=== PATIENT | female | born 1940 | race African-American/Black ===

== ENCOUNTER 2018-03-26 13:23 | Outpatient (CLI) | payer MEDICARE, BC | END 2018-03-26 13:24 | disposition home or self-care (01) | LOC: BICMAMMO 13:23 | PROVIDERS: ATTEND Internal Medicine | DX: Z12.31 Encounter for screening mammogram for malignant neoplasm of breast (principal); Z13.820 Encounter for screening for osteoporosis; R92.1 Mammographic calcification found on diagnostic imaging of breast; M85.89 Other specified disorders of bone density and structure, multiple sites; Z78.0 Asymptomatic menopausal state; Z80.3 Family history of malignant neoplasm of breast | CPT/HCPCS: 77063; 77067; 77080 ==

== ENCOUNTER 2019-02-22 10:46 | Emergency (ER) | payer BC, MEDICARE | END 2019-02-22 11:40 | disposition home or self-care (01) | LOC: SCSER 10:46 | DX: R42 Dizziness and giddiness (principal); G47.00 Insomnia, unspecified; E03.9 Hypothyroidism, unspecified | CPT/HCPCS: 93005 ==

== ENCOUNTER 2019-04-22 08:33 | Outpatient (CLI) | payer MEDICARE, BC ==
--- NOTE | 2019-04-22 10:49 | MMO ---
Bilateral MAMMO Bilat Screen [facility]. CLINICAL HISTORY: Patient is 78 years old and is seen for screening. The patient has no personal history of cancer. The patient has a history of left Excisional Biopsy in September, - benign. VIEWS: The views performed were: bilateral craniocaudal with tomosynthesis and bilateral mediolateral oblique with tomosynthesis. FILMS COMPARED: The present examination has been compared to prior imaging studies performed at [facility] on 02/17/2015, 03/11/2016, 03/14/2017 and 03/26/2018. This study has been interpreted with the assistance of computer-aided detection. MAMMOGRAM FINDINGS: There are scattered fibroglandular densities. Benign calcifications are noted bilaterally. There are no suspicious masses, suspicious calcifications, or new areas of architectural distortion. IMPRESSION: THERE IS NO MAMMOGRAPHIC EVIDENCE OF MALIGNANCY. A ROUTINE FOLLOW-UP MAMMOGRAM IN 1 YEAR IS RECOMMENDED. THE RESULTS OF THIS EXAM WERE SENT TO THE PATIENT. ACR BI-RADS Category 2 - Benign finding MAMMOGRAPHY NOTE: 1. A negative mammogram report should not delay a biopsy if a dominant of clinically suspicious mass is present. 2. Approximately 10% to 15% of breast cancers are not detected by mammography. 3. Adenosis and dense breasts may obscure an underlying neoplasm. Reported by: KASIA JENKINS MD Electonically Signed: [id number]
--- NOTE | 2019-04-22 16:07 | BD ---
BONE DENSITOMETRY USING DEXA: Date: 04/22/19 HISTORY: Postmenopausal screening for osteoporosis. FINDINGS: Lumbar Spine: BMD (g/cm2) L1 0.899 T-Score: -0.8 Z-Score: 0.9 L2 0.917 T-Score: -1.0 Z-Score: 1.0 L3 0.947 T-Score: -1.2 Z-Score: 0.8 L4 0.878 T-Score: -1.7 Z-Score: 0.5 L1-L4 0.909 T-Score: -1.3 Z-Score: 0.7 Femoral Neck: 0.617 T-Score: -2.1 Z-Score: -0.6 Total Femur: 0.804 T-Score: -1.1 Z-Score: 0.1 The 10 year fracture risk for a major osteoporotic fracture is 10% and for a hip fracture is 2.6%. IMPRESSION: Osteopenia. POS: OFF
== END 2019-04-22 08:34 | disposition home or self-care (01) ==
LOC: BICMAMMO 08:33
PROVIDERS: ATTEND Internal Medicine
DX: Z12.31 Encounter for screening mammogram for malignant neoplasm of breast (principal); Z13.820 Encounter for screening for osteoporosis; M85.89 Other specified disorders of bone density and structure, multiple sites; Z91.89 Other specified personal risk factors, not elsewhere classified
CPT/HCPCS: 77063; 77067; 77080

== ENCOUNTER 2021-12-30 08:56 | Outpatient (CLI) | payer BC, MEDICARE | END 2021-12-30 08:57 | disposition home or self-care (01) | LOC: BICMAMMO 08:56 | PROVIDERS: ATTEND Internal Medicine | DX: Z12.31 Encounter for screening mammogram for malignant neoplasm of breast (principal); Z91.89 Other specified personal risk factors, not elsewhere classified | CPT/HCPCS: 77063; 77067 ==

== ENCOUNTER 2023-03-02 09:31 | Outpatient (CLI) | payer MEDICARE, BC | END 2023-03-02 09:32 | disposition home or self-care (01) | LOC: BICMAMMO 09:31 | PROVIDERS: ATTEND Family Medicine | DX: Z13.820 Encounter for screening for osteoporosis (principal); M85.89 Other specified disorders of bone density and structure, multiple sites | CPT/HCPCS: 77080 ==